=== PATIENT | female | born 1980 ===

== ENCOUNTER 2017-12-21 03:02 | Day surgery (SDC) | payer OTHER ==
[2017-12-21 03:02] VITALS: BMI 33.7
[2017-12-21] MEDS ORDERED: Sodium Chloride 0.9% 500 ML IV ONE (03:27)
[2017-12-21] MEDS ORDERED: Sodium Chloride 0.9% 1,000 ML ONE (03:44)
[2017-12-21 03:49] LABS: BASO # 0.1 K/uL (0.0-0.2); BASO % 0.8 % (0.0-2.0); EOS # 0.4 K/uL (0.0-0.7); EOS % 4.3 % (0.0-4.0); HEMOGLOBIN 12.4 g/dL (11.0-16.0); LYMPH # 2.3 K/uL (1.0-4.3); LYMPH % 22.5 % (20.0-40.0); MEAN CELL VOLUME 88.5 fL (81.0-99.0); MEAN CORPUSCULAR HEMOGLOBIN 30.3 pg (27.0-31.0); MEAN CORPUSCULAR HGB CONC 34.2 g/dL (33.0-37.0); MEAN PLATELET VOLUME 8.6 fL (7.2-11.7); MONO # 0.8 K/uL (0.0-0.8); MONO % 7.6 % (0.0-10.0); NEUT # 6.6 K/uL (1.8-7.0); NEUT % 64.8 % (50.0-75.0); RBC 4.08 Mil/uL (3.80-5.20); RED CELL DISTRIBUTION WIDTH 13.8 % (11.5-14.5); WHITE BLOOD COUNT 10.2 K/uL (4.8-10.8)
--- NOTE | 2017-12-21 03:55 | C.PDOC ---
History Of Present Illness 27 year old female, , presents to the ED c/o vaginal bleeding and clots. Patient states she passed products. Patient is also c/o suprapubic and lower back pain. Patient was seen at [facility] yesterday and dx with threatened AB. Patient denies fever, chills, CP, SOB, dysuria, hematuria, weakness, numbness. Time Seen by Provider: 12/21/17 03:22 Chief Complaint (Nursing): Female Genitourinary History Per: Patient History/Exam Limitations: no limitations Onset/Duration Of Symptoms: Days Current Symptoms Are (Timing): Still Present Quality Of Discomfort: Cramping Associated Symptoms: denies: Nausea, Vomiting, Diarrhea Recent travel outside of the [place]: No Additional History Per: Patient Abnormal Vaginal Bleeding: Yes : 1 Para: 0 Past Medical History Reviewed: Historical Data, Nursing Documentation, Vital Signs Vital Signs: Last Vital Signs Temp 99 F 12/21/17 03:16 Pulse 88 12/21/17 03:16 Resp 18 12/21/17 03:16 BP 134/83 12/21/17 03:16 Pulse Ox 97 12/21/17 03:16 - Medical History PMH: Gall Bladder Disease (CHOLELITHIASIS 03-14-17) Denies: Chronic Kidney Disease Surgical History: Cholecystectomy Denies: Pacemaker Family History: States: Unknown Family Hx - Social History Hx Alcohol Use: No Hx Substance Use: No - Immunization History Hx Tetanus Toxoid Vaccination: No Hx Influenza Vaccination: No Hx Pneumococcal Vaccination: No Review Of Systems Constitutional: Negative for: Fever, Chills Cardiovascular: Negative for: Chest Pain Respiratory: Negative for: Shortness of Breath Gastrointestinal: Positive for: Abdominal Pain. Negative for: Nausea, Vomiting Genitourinary: Positive for: Vaginal Bleeding. Negative for: Dysuria Musculoskeletal: Positive for: Back Pain Neurological: Negative for: Weakness, Numbness Physical Exam - Physical Exam Appears: Non-toxic, No Acute Distress Skin: Normal Color, Warm, Dry Head: Atraumatic, Normacephalic Eye(s): bilateral: Normal Inspection, PERRL Neck: Normal ROM, Supple Chest: Symmetrical Cardiovascular: Rhythm Regular Respiratory: Normal Breath Sounds, No Rales, No Rhonchi, No Wheezing Gastrointestinal/Abdominal: Soft, Tenderness (suprapubic), No Guarding, No Rebound Back: No CVA Tenderness Pelvic: Vaginal Bleeding, Cervix Open, Other ((+) clots, tissue at os) Extremity: Normal ROM, No Tenderness, No Swelling Neurological/Psych: Oriented x3, Normal Speech, Normal Cognition Gait: Steady ED Course And Treatment - Laboratory Results Result Diagrams: 12/21/17 03:45 12/21/17 03:45 O2 Sat by Pulse Oximetry: 97 (ON RA) Pulse Ox Interpretation: Normal - CT Scan/US Pelvic US Other Rad Studies (CT/US): Read By Radiologist, Radiology Report Reviewed CT/US Interpretation: Obstetric ultrasound, transvaginal. Indication: Vaginal bleeding. Technique: Transvaginal real-time ultrasound images were obtained. Findings: Uterus measures 8.1x5.1x4.5 cm. Anteverted uterus. Closed cervix. Nabothian cysts of the uterine cervix measuring 2.1 cm. Normal cervical length measuring 4 cm. Heterogeneous thickening of the endometrium with increased vascularity on color Doppler exam suggestive of retained products of conception. No intrauterine is seen. Right ovary measures 2.1 x 3.6 x 1.6 cm. Left ovary measures 2.1x2.3x2.1 cm. Normal bilateral ovarian flow. Impression: Diffuse heterogeneous thickening of the endometrium. Associated increased va scularity. Probably retained products of conception. No intrauterine is seen. Normal ovaries. . Electronically signed on Dec 21, 2017 5:35:21 AM EDT by: Nikia Watkins M.D., Certified by ABR, MSK, Neuroradiology Progress Note: Plan: - Labs. - UA. - Pelvic US. - IV fluids. Patient brought products with her collected in a cup. The contents of the cup were sent to the lab for pathology analysis. Labs and OB US results reviewed and case was d/w Dr Echavarria - OB early childhood education worker who will evaluate the pt. Pt was evaluated by Dr Echavarria - Ob early childhood education worker and will admit pt Dg for D&C Disposition - Disposition Disposition: HOSPITALIZED Disposition Time: 07:04 Condition: STABLE Forms: [facility] (Portuguese) - Clinical Impression Clinical Impression: Retained products of conception - PA / HOSPICE MANAGER / Resident Statement MD/DO has reviewed & agrees with the documentation as recorded. - Scribe Statement The provider has reviewed the documentation as recorded by the Scribnancy Lundberg All medical record entries made by the Scribe were at my direction and personally dictated by me. I have reviewed the chart and agree that the record accurately reflects my personal performance of the history, physical exam, medical decision making, and the department course for this patient. I have also personally directed, reviewed, and agree with the discharge instructions and disposition.
[2017-12-21 04:02] LABS: ALB/GLOB RATIO 1.2 (1.0-2.1); ALBUMIN 4.1 g/dL (3.5-5.0); ALT/SGPT 36 U/L (9-52); AST/SGOT 22 U/L (14-36); BLOOD UREA NITROGEN 13 mg/dL (7-17); CALCIUM 9.6 mg/dl (8.6-10.4); GFR NON-AFRICAN AMERICAN > 60
[2017-12-21 05:42] LABS: SQUAMOUS EPITHIAL 1 /hpf (0-5); URINE BILIRUBIN NEGATIVE (NEGATIVE); URINE BLOOD 3+ (NEGATIVE); URINE CALCIUM OXALATE CRYSTALS FEW /hpf (<OCC); URINE GLUCOSE (UA) NORMAL (Normal); URINE LEUKOCYTE ESTERASE NEG Leu/uL (Negative); URINE PROTEIN 1+ mg/dL (NEGATIVE); URINE UROBILINOGEN NORMAL mg/dL (0.2-1.0)
[2017-12-21 06:03] LABS: URINE CLARITY Turbid (Clear); URINE COLOR DARK YELLOW (YELLOW)
--- NOTE | 2017-12-21 07:23 | CP.SDSHP ---
Same Day Surgery H & P - History Proposed Procedure: Suction curettage Pre-Op Diagnosis: Retained products of conception - Previous Medical/Surgical History Pain: 6.Severe Pain Comments: 2018, Gallstones Previous Surgical History: 03/2017, laparoscopic cholecystectomy - Allergies Allergies: Allergies No Known Allergies Allergy (Verified 12/21/17 03:15) - Physical Exam General Appearance: WD, mildly obese, in NAD. Appropriately anxious. Vital Signs: Vital Signs 12/21/17 12/21/17 12/21/17 03:16 05:52 07:07 Temperature 99 F 98 F Pulse Rate 88 75 Respiratory 18 20 Rate Blood Pressure 134/83 103/75 O2 Sat by Pulse 97 100 97 Oximetry Mental Status: Alert & Oriented x3 Neuro: WNL Heart: WNL Lungs: WNL GI: WNL - {Optional Preform as Required} Abdomen: WNL Other Pertinent Findings: Abdomen: soft. non tender, non distended. No rebound tenderness or guarding. Speculum: blood clot noted, per os; unable to retrieve with ring forceps. Minimal egress of dark blood per cervical os. Bimanual: cervical os open 1 cm; fullness noted in lower uterine segment. Uterus approx 8cm anteverted, soft, mobile, minimally tender. No adnexal adnexal fullness or tenderness, bilaterally. Labs: H/H 12.4/36.1. Rh (+), BHCG 15, 973 - Impression Impression: Retained products of conception Pt. Evaluated Today:Candidate for Anesthesia & Procedure: Yes - Date & Time Date: 12/21/17 Time: 07:00 Short Stay Discharge - Short Stay Discharge Admitting Diagnosis/Reason for Visit: RETAINED PRODUCT OF Disposition: HOME/ ROUTINE Medications: RX: Doxycycline Monohydrate 100 mg PO BID #14 tablet Ibuprofen [Motrin] 600 mg PO Q6 PRN #24 tab PRN Reason: Pain, Moderate (4-7) Methylergonovine Maleate [Methergine] 0.2 mg PO Q6 #4 tablet Referrals: Non [facility] Provider, [Primary Care Provider] - Follow-up: Follow up Dr. Stephanie Dobbins in 1-2 weeks, call office for appointment Nothing per vagina x 2 weeks Continue vitamins 1 tab by mouth once a day Rx: Doxycycline 100 mg 1 tab by mouth twice a day x 7 days Additional Instructions (Diet, Activity): Nothing per vagina x 2 weeks Regular diet, as tolerated Progress Note/Discharge Note with Instructions: Uncomplicated suction/sharp curettage performed without incident. Patient tolerated procedure well. To PACU in stable condition
[2017-12-21] MEDS ORDERED: Lactated Ringer's 1,000 ML IV SCH (07:30)
[2017-12-21] MEDS ORDERED: cefOXitin IV 2 gm in Dextrose 2 GM/50 ML BAG IVPB ONE (08:00)
[2017-12-21] MEDS ORDERED: cefOXitin IV 1 gm in Dextrose 0 GM/0 ML BAG IVPB ONE (08:10)
[2017-12-21] MEDS ORDERED: Midazolam 2 MG/2 ML VIAL ONE (09:05)
[2017-12-21] MEDS ORDERED: Propofol 10 mg/ml Inj (20 ML) ONE (09:05)
[2017-12-21] MEDS ORDERED: HYDROmorphone 0.5 mg/0.5 ml ISec IVP PRN (09:15)
--- NOTE | 2017-12-21 09:36 | PCM.SURG1 ---
Surgeon's Initial Post Op Note - Surgeon's Notes Surgeon: Adelia Echavarria MD Stripper Apprentice: Not applicable Type of Anesthesia: General LMA Anesthesia Administered By: Elina Spaulding MD Pre-Operative Diagnosis: retained products of conception Operative Findings: uterus sounded to 9 cm. moderate amount of products of conception Post-Operative Diagnosis: Same Operation Performed: Suction/sharp curettage Specimen/Specimens Removed: Products of conception to pathology Estimated Blood Loss: EBL {In ML}: 50 (IVFs 800 ml LR. Methergine 0.2 mg given IM x 1) Blood Products Given: N/A Drains Used: No Drains Post-Op Condition: Good Date of Surgery/Procedure: 12/21/17 Time of Surgery/Procedure: 09:30
--- NOTE | 2017-12-21 11:01 | US ---
Pelvic ultrasound HISTORY: Vaginal bleeding. products passed. Comparison: None available. Technique: Real-time sonography was performed through the pelvis utilizing transvaginal technique. Findings: [place] [address]. Uterus: 8.1 x 5.1 x 4.5 centimeters. Heterogeneous echotexture. Anteverted. Cervix measures 4 centimeters, closed. Nabothian cyst noted at the level of the cervix measuring 1.5 x 1.2 x 2.1 centimeters. Thickened and heterogeneous endometrium with associated increased vascularity which is concerning for possible retained products of conception. Right ovary: 2.1 x 1.6 x 3.6 centimeters. Normal flow. Left ovary: 3.1 x 2.1 x 0.3 centimeters. Normal flow. Impression: Positive test. No discrete intrauterine identified. Thickened and heterogeneous endometrium with associated increased vascularity. This is concerning for possible retained products of conception. Clinical correlation. Limited 1st trimester ultrasound for viability purposes only. Continued interval followup with serial ultrasound, serial hCG levels, and gynecological consultation would be helpful if clinically indicated. These findings were preliminarily reported at 5:35 a.m. on 12/21/[address] Nikia Watkins from [facility].
[2017-12-21 12:52] VITALS: BP 117/62; PULSE 79; RESP 18; TEMP 97.7; O2SAT 98
--- NOTE | 2017-12-21 14:17 | CP.PCM.HP ---
History of Present Illness - History of Present Illness History of Present Illness: Patient seen and evaluated at 0625 hours; received in the Multi-Purpose Room, in E.D. Patient on stretcher, in NAD. at her side 37 y.o. , LMP 10/23/17, 8 weeks 3 days presents to E.D. reporting having passed a "small sac" this morning as she was awakened out of her sleep with a gush of blood after sneezing. Heavy vaginal bleeding then ensued, with passage of blood clots. retrieved the "sac" and presented it to the E.D. staff upon their arrival. In the E.D., sent for ultrasound, significant for the following: "Heterogeneous thickening of the endometrium with increased vascularity on color Doppler exam, suggestive of retained products of conception. No intrauterine seen. Right ovary 2.1 x 3.6 x 1.6 cm. Left ovary 2.1 x 2.3 x 2.1 cm. Normal bilateral ovarian flow". At this time, patient reports abdominal pain, pain scale 6/10; S/P p.o. tylenol. Denies dizziness, lightheadedness, chest pain or palpitations. No nausea or vomiting. last ate at midnight; drank some water approx 0400 hours for oltrasound. Patietn and state, they realized something wasn't quite right as the remember quant HCG was 18,[address] Dobbins last visit. It was 17,5000 at [facility] yesterday; and 15,000+ today. HPI: 12/20/17 at 1100 hours, noted a pinkish discharge. Went to E.D. at [facility]. Ultrasound performed: " pole without cardiac activity. CRL corresponds to gestational age of 6weeks 5days. ... Yolk sac identified. ... No cervical abnormalities. Negative examination for cervical dilatation or effacement..."". Patient and state were not told of the intrauterine demise; only to follow up with her Ob in 1-2 days. Patient's private [employer] Fireman is Dr. Stephanie Dobbins. P Ob: primip P CORSETIER: 12 x 30 x 5. First Pap earlier this year with Dr. Dobbins. 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 Deneis h/o other STIs, myomata, ovarian cysts PMH: gallstones, 03/2017 PSH: 03/2017, laparoscopic cholecystectomy NKDA Meds: PNV Soc Hx: denies tobacco, illicit drug or EtOH use. x 1 year; together x 2 years. Works as a Utility Sales Representative Fam Hx: Mother , 2009, age 58 - ovarian cancer. Father alive 60+ - DM. Mat aunt - ovarian cancer. Mat uncle - prostate cancer Present on Admission - Present on Admission Any Indicators Present on Admission: No Review of Systems - Review of Systems All systems: reviewed and no additional remarkable complaints except (as per HPI) Past Patient History - Infectious Disease Hx of Infectious Diseases: None - Tetanus Immunizations Tetanus Immunization: Unknown - Past Medical History & Family History Pertinent Family History: ovarian cancer, prostate cancer. DM - Past Social History Smoking Status: Never Smoked Occupation: Utility Sales Representative Alcohol: None Drugs: Denies Home Situation {Lives}: With Family Domestic Violence: Negative - CARDIAC Hx Cardiac Disorders: No Hx Pacemaker: No - PULMONARY Hx Respiratory Disorders: No - NEUROLOGICAL Hx Neurological Disorder: No - HEENT Hx HEENT Problems: No - RENAL Hx Chronic Kidney Disease: No - ENDOCRINE/METABOLIC Hx Endocrine Disorders: No - HEMATOLOGICAL/ONCOLOGICAL Hx Blood Disorders: No - INTEGUMENTARY Hx Dermatological Problems: No - MUSCULOSKELETAL/RHEUMATOLOGICAL Hx Musculoskeletal Disorders: No - GASTROINTESTINAL Hx Gall Bladder Disease: Yes (CHOLELITHIASIS 03-14-17) - GENITOURINARY/GYNECOLOGICAL Hx Genitourinary Disorders: Yes Hx Sexually Transmitted Disorders: Yes ((+)HPV) Hx Urinary Tract Infection: Yes - PSYCHIATRIC Hx Psychophysiologic Disorder: No Hx Substance Use: No - SURGICAL HISTORY Hx Cholecystectomy: Yes (03/2017, laparoscopic) - ANESTHESIA Hx Anesthesia: Yes Hx Anesthesia Reactions: No Hx Malignant Hyperthermia: No Meds Home Medications: Home Medication List Medication Instructions Recorded Confirmed Type Doxycycline Monohydrate 100 mg PO BID #14 tablet 12/21/17 Rx Ibuprofen [Motrin] 600 mg PO Q6 PRN #24 tab 12/21/17 Rx Methylergonovine Maleate 0.2 mg PO Q6 #4 tablet 12/21/17 Rx [Methergine] Allergies/Adverse Reactions: Allergies Allergy/AdvReac Type Severity Reaction Status Date / Time No Known Allergies Allergy Verified 12/21/17 03:15 Physical Exam - Constitutional Appears: Well, No Acute Distress - Head Exam Head Exam: NORMAL INSPECTION - Eye Exam Eye Exam: Normal appearance - ENT Exam ENT Exam: Mucous Membranes Moist - Respiratory Exam Respiratory Exam: NORMAL BREATHING PATTERN - Cardiovascular Exam Cardiovascular Exam: REGULAR RHYTHM - GI/Abdominal Exam GI & Abdominal Exam: Soft - Exam Speculum exam: Tissue (No active bright red blood. Tissue noted at cervical os) Additional comments: Bimanual exam: cervical os 1 cm dilated. Fullness appreciated in lower uterine segment. No adnexal masses or tenderness. Anteverted uterus, 8 weeks; soft mobile, non tender - Extremities Exam Extremities exam: Positive for: full ROM, normal inspection - Back Exam Back exam: NORMAL INSPECTION - Neurological Exam Neurological exam: Alert, Normal Gait, Oriented x3 - Psychiatric Exam Psychiatric exam: Anxious - Skin Skin Exam: Dry, Intact, Normal Color, Warm Results - Vital Signs Recent Vital Signs: Last Vital Signs Temp 97.7 F 12/21/17 12:28 Pulse 79 12/21/17 12:28 Resp 18 12/21/17 12:28 BP 117/62 12/21/17 12:28 Pulse Ox 98 12/21/17 12:28 - Labs Result Diagrams: 12/21/17 03:45 12/21/17 03:45 Labs: Laboratory Results - last 24 hr 12/21/17 12/21/17 12/21/17 03:45 03:45 03:56 WBC 10.2 RBC 4.08 Hgb 12.4 Hct 36.1 MCV 88.5 MCH 30.3 MCHC 34.2 RDW 13.8 Plt Count 346 MPV 8.6 Neut % (Auto) 64.8 Lymph % (Auto) 22.5 Jerome % (Auto) 7.6 Eos % (Auto) 4.3 H Baso % (Auto) 0.8 Neut # (Auto) 6.6 Lymph # (Auto) 2.3 Jerome # (Auto) 0.8 Eos # (Auto) 0.4 Baso # (Auto) 0.1 Sodium 140 Potassium 3.9 Chloride 104 Carbon Dioxide 27 Anion Gap 14 BUN 13 Creatinine 0.6 L Est GFR ( Amer) > 60 Est GFR (Non-Af Amer) > 60 Random Glucose 113 H Calcium 9.6 Total Bilirubin 0.4 AST 22 ALT 36 Alkaline Phosphatase 81 Total Protein 7.5 Albumin 4.1 Globulin 3.3 Albumin/Globulin Ratio 1.2 Beta HCG, Quant 65397.00 Urine Color Urine Clarity Urine pH Ur Specific [place] Urine Protein Urine Glucose (UA) Urine Ketones Urine Blood Urine Nitrate Urine Bilirubin Urine Urobilinogen Ur Leukocyte Esterase Urine WBC (Auto) Urine RBC (Auto) Ur Squamous Epith Cells Calcium Oxalate Crystal Blood Type O POSITIVE Antibody Screen Negative 12/21/17 05:31 WBC RBC Hgb Hct MCV MCH MCHC RDW Plt Count MPV Neut % (Auto) Lymph % (Auto) Jerome % (Auto) Eos % (Auto) Baso % (Auto) Neut # (Auto) Lymph # (Auto) Jerome # (Auto) Eos # (Auto) Baso # (Auto) Sodium Potassium Chloride Carbon Dioxide Anion Gap BUN Creatinine Est GFR ( Amer) Est GFR (Non-Af Amer) Random Glucose Calcium Total Bilirubin AST ALT Alkaline Phosphatase Total Protein Albumin Globulin Albumin/Globulin Ratio Beta HCG, Quant Urine Color Dark yellow Urine Clarity Turbid Urine pH 5.0 Ur Specific [place] 1.023 Urine Protein 1+ H Urine Glucose (UA) Normal Urine Ketones Negative Urine Blood 3+ H Urine Nitrate Negative Urine Bilirubin Negative Urine Urobilinogen Normal Ur Leukocyte Esterase Neg Urine WBC (Auto) 12 H Urine RBC (Auto) 2518 H Ur Squamous Epith Cells 1 Calcium Oxalate Crystal Few H Blood Type Antibody Screen Assessment & Plan - Assessment and Plan (Free Text) Assessment: Laboratory and ultrasound results reviewed by me personally: noted for sono report as stated above. Hgb 12.4 and Rh (+). 37 y.o. P0010, incomplete . Options D/W patient: D/C home on uterotonic with pain medications; surgical intervention with uterine evacuation. Patient and left alone to discuss the matter. Patient opted for surgery. R/B/C discussed; questions answered. Consents signed, dated, witnessed and placed in chart. Patient bacon de rinder to O.R. Plan: Admit to [facility] NPO IVFs Mefoxin bacon de rinder to O.R biology department chair to O.R. - Date & Time Date: 12/21/17 Time: 07:30
--- NOTE | 2017-12-21 20:21 | OP ---
PROCEDURE DATE: 12/21/2017 SURGEON: Adelia Echavarria MD RN ANESTHESIOLOGY: None. TYPE OF ANESTHESIA: General LMA. ANESTHESIA ADMINISTERED BY: Kimmie Zambrano MD PREOPERATIVE DIAGNOSIS: Retained products of conception. POSTOPERATIVE DIAGNOSIS: Retained products of conception. OPERATION PERFORMED: Suction sharp curettage. OPERATIVE FINDINGS: Examination under anesthesia: anteverted uterus 8 weeks in size, mobile, no adnexal masses appreciated. External os was opened to 1 cm and products of conception visible at the external os. At time of suction, moderate amount of products of conception. SPECIMEN: Products of conception to pathology. ESTIMATED BLOOD LOSS: 50 mL. INTRAVENOUS FLUIDS: 600 mL lactated Ringer's . Methergine 0.2 mg was administered IM x1. DRAINS: None. COMPLICATIONS: None. DESCRIPTION OF PROCEDURE: The patient was taken to the operating room after having obtained informed consent for the anticipated procedure. This included a discussion of possible risks and complications including but not limited to infection requiring antibiotics, hemorrhage requiring blood transfusion, possible uterine perforation requiring laparoscopy, possible laparotomy, repair of any damage to internal organs, possible hysterectomy. The patient expressed understanding, her questions were answered. Consent forms were signed, dated, witnessed and placed in the chart. En route to the operating room, the patient received Mefoxin 2 grams via intravenous piggyback. In the operating room, she was placed on the operating room table where general anesthesia via LMA was administered without incident. She was subsequently repositioned in a dorsal lithotomy position [facility] stirrups. The perineum was prepped, and she was draped in the usual sterile fashion. Examination under anesthesia was performed with the findings as above. A weighted speculum was placed in the posterior vaginal vault. Using a Blunt retractor, the cervix was visualized and it was grasped on the anterior lip using a ring forceps. The uterus was sounded to 9 cm. An 8 mm suction curette was introduced into the uterine cavity. The suction device was connected, it was activated. The uterus was emptied of its contents - a moderate amount of products of conception being retrieved. Sharp curettage was then performed until a gritty texture was obtained. Repeat suction was performed. The uterus was contracted around the suction curette. All instruments were removed. Bimanual examination was performed. The uterus was contracted and firm. Hemostasis was assured. The patient was repositioned in the supine manner. She was allowed to arise from anesthesia. She was transferred to the Post Anesthesia Care Unit in stable condition. Adelia Echavarria MD MTDDuane
== END 2017-12-21 12:50 | disposition home or self-care (01) ==
LOC: C.ER 03:02 → SUPCPDRO 03:02 → C.SDS 06:58
PROVIDERS: ATTEND Obstetrics & Gynecology
DX: O02.1 Missed abortion (principal)
CPT/HCPCS: 59820; 76817; 80053; 81001; 84702; 85025; 86850; 86900; 88305; 96361; 96365; 99285; J0694; J1170; J2210; J2250; J2704; J3010; J7040; J7120